=== PATIENT | female | born 1970 | race Caucasian/White ===

== ENCOUNTER 2024-05-05 19:58 | Emergency (ER) | payer OTHER, SELFPAY ==
[2024-05-05 19:58] VITALS: BP 141/96; PULSE 116; RESP 18; TEMP 36.7; O2SAT 99
--- NOTE | 2024-05-05 20:05 | ED.ALLEREA ---
HPI - Allergic Reaction General Chief complaint: Allergic Reaction Stated complaint: skin issue Time Seen by Provider: 05/05/24 20:04 Source: patient Mode of arrival: ambulatory Limitations: no limitations History of Present Illness HPI narrative: this is a 53-year-old female who presents with a history rash that appears to be eczematous her arms but is spreading from her hands to her arms with no shortness of breath no audible wheezing no fever chills. complaint: allergic reaction Onset (ago): week(s) Exposure: unknown Symptoms: rash and itching Severity: mild Related Data Allergies Allergy/AdvReac Type Severity Reaction Status Date / Time No Known Allergies Allergy Verified 05/05/24 20:02 Review of Systems Review of Systems: All systems reviewed & are unremarkable except as noted in HPI and below PMFSH Past Medical History Medical History Patient denies medical problems Exam Const: General: healthy appearing and no acute distress Nutritional Appearance: well nourished Orientation/consciousness: patient oriented x3 Neck: Neck: normal visual inspection, no lymphadenopathy and no meningeal signs Chest: Chest palpation & inspection: normal inspection of the chest Resp: Effort & Inspection: normal respiratory effort Auscultation: clear to auscultation bilaterally Cardio: Rate: regular rate Rhythm: regular rhythm GI: GI Palp: Yes Soft to palpation Auscultation: normal bowel sounds Skin: Other: eczematous rash located on hands in arms Course Course Emergency Course: 80mg IM Depo-Medrol administered. Vital Signs Vital signs: Vital Signs Temperature 36.7 C 05/05/24 19:58 Pulse Rate 116 H 05/05/24 19:58 Respiratory Rate 18 05/05/24 19:58 Blood Pressure 141/96 H 05/05/24 19:58 Pulse Oximetry 99 05/05/24 19:58 Oxygen Delivery Room Air 05/05/24 19:58 Temperature 36.7 C 05/05/24 19:58 Pulse Rate 116 H 05/05/24 19:58 Respiratory Rate 18 05/05/24 19:58 Blood Pressure 141/96 H 05/05/24 19:58 Pulse Oximetry 99 05/05/24 19:58 Oxygen Delivery Room Air 05/05/24 19:58 Critical Care Time Critical Care Time Critical Care Time: No Discharge Plan Discharge Clinical Impression: Allergic reaction, Contact dermatitis Patient Disposition: Home, Self-Care Condition: Stable Instructions: Antibiotic Form, Eczema (ED), Acute Rash (ED) Additional Instructions: Advised to take medicine as prescribed and follow with primary within 1 week for further evaluation treatment. Prescriptions: New triamcinolone acetonide 0.1 % ointment 1 applic topical TID 7 Days Qty: 30 0RF Rx Instructions: applied hands and arms and other affected areas prednisone 20 mg tablet 20 mg PO DAILY 5 Days Qty: 5 0RF Follow-up/Referrals: UNKNOWN,DOCTOR [Primary Care Provider] - Time of Disposition: 20:09
[2024-05-05] MEDS: methylPREDNISolone ACETATE 40 MG/ML VIAL 80 MG IM (20:15)
== END 2024-05-05 20:40 | disposition home or self-care (01) ==
LOC: CHSED 20:15
PROVIDERS: Emergency Provider Emergency Medicine
DX: L23.9 Allergic contact dermatitis, unspecified cause (principal)
CPT/HCPCS: 96372; 99283; J1010